=== PATIENT | female | born 1980 | race Caucasian/White ===

== ENCOUNTER → 2018-06-20 | Outpatient (CLI) | payer BC | LOC: MC.RAD 07:17 | DX: Z12.31 Encounter for screening mammogram for malignant neoplasm of breast (principal) ==

== ENCOUNTER → 2019-06-28 | Outpatient (CLI) | payer BC | LOC: MC.RAD 09:18 | DX: Z12.31 Encounter for screening mammogram for malignant neoplasm of breast (principal); N63.10 Unspecified lump in the right breast, unspecified quadrant; N63.20 Unspecified lump in the left breast, unspecified quadrant ==

== ENCOUNTER → 2019-07-04 | Outpatient (CLI) | payer BC | LOC: MC.RAD 07:23 | DX: N60.02 Solitary cyst of left breast (principal) ==

== ENCOUNTER 2020-02-07 18:33 | Emergency (ER) | payer BC ==
[~2020-02-07] VITALS: Ht 170.2 cm; Wt 88.6 kg
[2020-02-07 18:43] VITALS: TEMP 97.5
[2020-02-07] MEDS ORDERED: PRINIVIL2.5 MG PO (19:59)
[2020-02-07] MEDS ORDERED: CELEXA10 MG PO (20:00)
[2020-02-07] MEDS ORDERED: AMOXICILLIN 8751 TAB PO (20:04)
[2020-02-07 20:18] VITALS: BP 129/83; PULSE 65
== END 2020-02-07 20:20 | disposition home or self-care (01) ==
LOC: COL.ER 18:33
DX: S01.511A Laceration without foreign body of lip, initial encounter (principal); Z88.2 Allergy status to sulfonamides; W54.0XXA Bitten by dog, initial encounter; Y92.009 Unspecified place in unspecified non-institutional (private) residence as the place of occurrence of the external cause

== ENCOUNTER → 2020-07-01 | Outpatient (CLI) | payer BC ==
[~2020-07-01] MED LIST: AMOXICILLIN 8751 TAB PO; CELEXA10 MG PO; PRINIVIL2.5 MG PO
== END ==
LOC: MC.RAD 08:14
DX: Z12.31 Encounter for screening mammogram for malignant neoplasm of breast (principal); R92.0 Mammographic microcalcification found on diagnostic imaging of breast

== ENCOUNTER → 2020-07-09 | Outpatient (CLI) | payer BC | LOC: MC.RAD 13:47 | DX: R92.8 Other abnormal and inconclusive findings on diagnostic imaging of breast (principal) ==

== ENCOUNTER → 2020-07-16 | Outpatient (CLI) | payer BC | LOC: MC.RAD 09:45 | DX: R92.0 Mammographic microcalcification found on diagnostic imaging of breast (principal) ==

== ENCOUNTER → 2021-09-18 | Outpatient (CLI) | payer OTHER | LOC: MC.RAD 07:59 | DX: Z12.31 Encounter for screening mammogram for malignant neoplasm of breast (principal) ==

== ENCOUNTER → 2023-11-25 | Outpatient (CLI) | payer OTHER | LOC: MC.RAD 08:37 | DX: Z12.31 Encounter for screening mammogram for malignant neoplasm of breast (principal) ==